=== PATIENT | female | born 1990 | race Caucasian/White ===

== ENCOUNTER 2024-02-11 13:44 | Emergency (ER) | payer OTHER ==
[~2024-02-11] VITALS: Ht 165.1 cm; Wt 127.0 kg
[2024-02-11 13:56] VITALS: BP 138/74; PULSE 58; RESP 18; TEMP 98; O2SAT 95
[2024-02-11] MEDS ORDERED: ONDANSETRON 4 MG TAB PO ONE (14:20)
[2024-02-11] MEDS: ONDANSETRON 4 MG ODT PO ONE (14:58)
[2024-02-11] MEDS: IBUPROFEN 400 MG TAB PO ONE (15:12)
[2024-02-11] MEDS ORDERED: PHEN-1877 PO (16:08)
[2024-02-11] MEDS ORDERED: CEPH250C16 PO (16:08)
[2024-02-11 16:20] VITALS: BP 125/76; PULSE 78; RESP 14
[2024-02-11 17:05] LABS: APPEARANCE,URINE CLEAR (CLEAR); BILIRUBIN,URINE NEGATIVE (NEGATIVE); BLOOD, URINE 3+ (NEGATIVE); COLOR,URINE YELLOW (YELLOW); LEUKOCYTE ESTERASE ,URINE 3+ (NEGATIVE); NITRITE, URINE NEGATIVE (NEGATIVE); PH,URINE 6.5 (5.0-9.0); PROTEIN,URINE NEGATIVE (NEGATIVE); UGLUCOSE NEGATIVE (NEGATIVE); UROBILINOGEN,URINE 0.2 EU/dL (0.2 - 1)
[2024-02-11 17:41] LABS: RBC,URINE 11-20 (MOD) /HPF (0-5)
[2024-02-11 17:44] LABS: BACTERIA,URINE FEW /HPF (None Seen); WBC,URINE TOO MANY TO COUNT /HPF (0-5)
[2024-02-11 17:45] LABS: SQUAMOUS EPITHELIAL CELL,UR 0-3 (FEW) /LPF (0-3 (FEW))
== END 2024-02-11 16:10 | disposition home or self-care (01) ==
LOC: MED 13:44
DX: N30.00 Acute cystitis without hematuria (principal); Z79.899 Other long term (current) drug therapy
CPT/HCPCS: 81001; 81025; 87086; 99283; Q0162; 87186